=== PATIENT | female | born 2000 | race Hispanic/Latino ===

== ENCOUNTER 2022-05-29 08:55 | Emergency (ER) | payer SELFPAY ==
[~2022-05-29] VITALS: Ht 162.6 cm; Wt 107.5 kg
== END 2022-05-29 11:31 | disposition home or self-care (01) ==
LOC: ED 08:55
DX: J10.1 Influenza due to other identified influenza virus with other respiratory manifestations (principal); Z20.822 Contact with and (suspected) exposure to COVID-19
CPT/HCPCS: 87502; 99283; C9803; U0003